=== PATIENT | male | born 1970 | race Caucasian/White ===

== ENCOUNTER 2020-10-25 13:36 | Emergency (ER) | payer SELFPAY ==
[~2020-10-25] VITALS: Ht 177.8 cm; Wt 79.0 kg
[2020-10-25] MEDS ORDERED: IBUPROFEN 600MG TABLET PO ONE (14:15)
[2020-10-25 15:01] VITALS: BP 152/66
== END 2020-10-25 16:01 | disposition home or self-care (01) ==
LOC: ER 13:36
DX: H10.021 Other mucopurulent conjunctivitis, right eye (principal); M79.662 Pain in left lower leg; M79.661 Pain in right lower leg; Z59.0 Homelessness; S01.511A Laceration without foreign body of lip, initial encounter; X58.XXXA Exposure to other specified factors, initial encounter; Y93.89 Activity, other specified; Y92.488 Other paved roadways as the place of occurrence of the external cause
CPT/HCPCS: 93970; 99284